=== PATIENT | female | born 1950 | race Caucasian/White ===

== ENCOUNTER 2020-11-19 07:50 | Outpatient (CLI) | payer MEDICARE | END 2020-11-19 07:51 | disposition home or self-care (01) | LOC: CSHMAMMO 07:50 | PROVIDERS: ATTEND Internal Medicine | DX: Z12.31 Encounter for screening mammogram for malignant neoplasm of breast (principal) | CPT/HCPCS: 77063; 77067 ==

== ENCOUNTER 2021-08-30 10:43 | Outpatient (CLI) | payer MEDICARE | END 2021-08-30 10:44 | disposition home or self-care (01) | LOC: CSHRAD 10:43 | PROVIDERS: ATTEND Internal Medicine | DX: U07.1 COVID-19 (principal); R05.9 Cough, unspecified | CPT/HCPCS: 71046 ==

== ENCOUNTER 2022-11-27 08:49 | Outpatient (CLI) | payer MEDICARE, OTHER | END 2022-11-27 08:50 | disposition home or self-care (01) | LOC: CSHMAMMO 08:49 | PROVIDERS: ATTEND Internal Medicine | DX: Z12.31 Encounter for screening mammogram for malignant neoplasm of breast (principal) | CPT/HCPCS: 77063; 77067 ==

== ENCOUNTER 2024-05-26 08:43 | Outpatient (CLI) | payer MEDICARE, OTHER | END 2024-05-26 08:44 | disposition home or self-care (01) | LOC: CSHMAMMO 08:43 | PROVIDERS: ATTEND Internal Medicine | DX: M81.0 Age-related osteoporosis without current pathological fracture (principal); M85.89 Other specified disorders of bone density and structure, multiple sites | CPT/HCPCS: 77080 ==